=== PATIENT | male | born 1970 | race Caucasian/White ===

== ENCOUNTER 2017-02-13 18:52 | Emergency (ER) | payer BC ==
[2017-02-13 19:13] VITALS: BP 143/89
[2017-02-13] MEDS ORDERED: Lidocaine 1% MPF* 2 ML VIAL INJ ONE (19:40)
--- NOTE | 2017-02-13 19:40 | UC ---
Laceration HPI - HPI Summary HPI Summary: SUSTAINED A LACERATION TO RADIAL SIDE OF LEFT WRIST ABOUT AN HOUR [employer]. WAS USING A UTILITY KNIFE TO FIX THE HANDLE OF HIS HAMMER AND SLIPPED. UTD TETANUS 2013. - History Of Current Complaint Chief Complaint: UCLaceration Stated Complaint: WRIST LACERATION Time Seen by Provider: 02/13/17 19:19 Hx Obtained From: Patient Laceration Location: Wrist - LEFT Mechanism Of Injury: Sharp Trauma Onset/Duration: Sudden Onset, Lasting Hours, Still Present Severity: Mild Pain Intensity: 0 Pain Scale Used: 0-10 Numeric Aggravating Factors: Movement Related History: Dominant Hand Right - Allergies/Home Medications Allergies/Adverse Reactions: Allergies Allergy/AdvReac Type Severity Reaction Status Date / Time No Known Allergies Allergy Verified 02/13/17 19:13 Home Medications: Home Medications Aspirin TAB* [Aspirin 325 MG TAB*] 325 mg PO DAILY 02/13/17 [History Confirmed 02/13/17] PMH/Surg Hx/FS Hx/Imm Hx Endocrine History Of: Denies: Diabetes, Thyroid Disease Cardiovascular History Of: Reports: Cardiac Disorders - Afib Denies: Hypertension Respiratory History Of: Reports: Asthma Denies: COPD GI/ History Of: Denies: Ulcer - Surgical History Surgical History: Yes Surgery Procedure, Year, and Place: appe - Family History Known Family History: Positive: Hypertension - Social History Alcohol Use: Rare Substance Use Type: None Smoking Status (MU): Never Smoked Tobacco - Immunization History Most Recent Influenza Vaccination: never received Most Recent Tetanus Shot: 2013 Most Recent Pneumonia Vaccination: never recieved Review of Systems Constitutional: Negative Skin: Other - LACERATION LEFT WRIST Respiratory: Negative Cardiovascular: Negative Gastrointestinal: Negative All Other Systems Reviewed And Are Negative: Yes Physical Exam Triage Information Reviewed: Yes Appearance: Well-Appearing, No Pain Distress, Well-Nourished Vital Signs: Initial Vital Signs Temp 97.6 F 02/13/17 19:10 Pulse 76 02/13/17 19:10 Resp 16 02/13/17 19:10 BP 143/89 02/13/17 19:10 Pulse Ox 97 02/13/17 19:10 Vital Signs Reviewed: Yes Eyes: Positive: Conjunctiva Clear ENT: Positive: Hearing grossly normal Neck: Positive: Supple Respiratory: Positive: No respiratory distress, No accessory muscle use Cardiovascular: Positive: Pulses Normal Abdomen Description: Positive: Soft Musculoskeletal: Positive: No Edema Neurological: Positive: Alert Psychological: Positive: Age Appropriate Behavior Skin: Positive: Other - 13MM LINEAR LACERATION RADIAL SIDE OF LEFT WRIST GAPING SLIGHTLY Laceration Repair - Laceration Repair 1 Description: Linear Laceration Size After Repair: Length (cm) - 1.3 CM, Width (mm) - 0MM, Depth (mm ) - 2MM Modified For Repair: No Type Injection: Local Anesthesia Used: 1.0% Lido Irrigation With Pressure Irrigation Device: Yes Closure Material: Sutures - 3 SIMPLE INTERRUPTED Closure Method: Single Layer Suture Of: Skin Suture Type: Other - 4-0 SURGIPRO Laceration Course/Dx - Differential Dx - Laceration/Wound Provider Diagnoses: LACERATION REPAIR LEFT WRIST Discharge - Discharge Plan Condition: Stable Disposition: HOME Patient Education Materials: Laceration (ED) Referrals: Oscar Rogers DO [Primary Care Provider] - If Needed Additional Instructions: APPLY THIN LAYER ANTIBIOTIC OINTMENT UNDER BANDAGE FOR FIRST 3-4 DAYS ONLY. CHANGE BANDAGE DAILY AND NEEDED IF IT BECOMES SOILED OR WET. SEEK FOLLOW-UP IF YOU DEVELOP SPREADING REDNESS OF THE SKIN, PURULENT DRAINAGE, FEVER, INCREASED PAIN OR ANY OTHER CONCERNING SYMPTOMS. RETURN FOR SUTURE REMOVAL IN 10 DAYS
== END 2017-02-13 20:32 | disposition home or self-care (01) ==
LOC: UCEAST 18:52
DX: S61.512A Laceration without foreign body of left wrist, initial encounter (principal); W45.8XXA Other foreign body or object entering through skin, initial encounter; Y93.9 Activity, unspecified; Y92.9 Unspecified place or not applicable; I48.91 Unspecified atrial fibrillation; J45.909 Unspecified asthma, uncomplicated
CPT/HCPCS: 12001; 12011; 12031; 99211; G0463

== ENCOUNTER 2018-02-22 12:15 | Emergency (ER) | payer BC, OTHER ==
[2018-02-22 13:51] VITALS: BP 177/90
--- NOTE | 2018-02-22 16:18 | UC ---
Dalton Ascencio Julia, scribed for Stalin Douglas MD on 02/22/18 at 1456 . General HPI - HPI Summary HPI Summary: This patient is a 47 year old M presenting to [facility] accompanied by his with a chief complaint of left foot pain and swelling for the past four days. Patient denies fever or chills. The patient rates the pain 5/10 in severity. Symptoms similar to previous gout symptoms, last occurring five years ago. Medications include ASA for A-fib. - History of Current Complaint Chief Complaint: UCLowerExtremity Stated Complaint: FOOT PAIN Time Seen by Provider: 02/22/18 14:52 Hx Obtained From: Patient Onset/Duration: Lasting Days, Still Present Timing: Constant Pain Intensity: 5 Pain Location at: left foot Character: swelling Associated Signs & Symptoms: Negative: Fever - Allergy/Home Medications Allergies/Adverse Reactions: Allergies Allergy/AdvReac Type Severity Reaction Status Date / Time No Known Allergies Allergy Verified 02/22/18 13:51 PMH/Surg Hx/FS Hx/Imm Hx Previously Healthy: Yes - gout Cardiovascular History: Atrial Fibrillation - Surgical History Surgical History: Yes Surgery Procedure, Year, and Place: appendectomy - Family History Known Family History: Positive: Hypertension - Social History Lives: With Family Alcohol Use: Occasionally Substance Use Type: None Smoking Status (MU): Never Smoked Tobacco - Immunization History Most Recent Influenza Vaccination: never received Most Recent Tetanus Shot: 2013 Most Recent Pneumonia Vaccination: never recieved Review of Systems Constitutional: Negative Musculoskeletal: Arthralgia, Edema All Other Systems Reviewed And Are Negative: Yes Physical Exam - Summary Physical Exam Summary: General: well-appearing, no pain distress Skin: warm, color reflects adequate perfusion, dry Head: normal Eyes: EOMI, SCOT ENT: normal Neck: supple, nontender Respiratory: CTA, breath sounds present Cardiovascular: RRR Abdomen: soft, nontender Bowel: present Musculoskeletal: strength/ROM intact, left MTP joint swelling and erythema, no streaking, good pulses, no break in skin, tophi present Neurological: sensory/motor intact, A&O x3 Psychological: affect/mood appropriate Triage Information Reviewed: Yes Vital Signs: Initial Vital Signs Temp 98.9 F 02/22/18 13:47 Pulse 66 02/22/18 13:47 Resp 16 02/22/18 13:47 BP 177/90 02/22/18 13:47 Pulse Ox 96 02/22/18 13:47 Vital Signs Reviewed: Yes Course/Dx - Course Course Of Treatment: Patient was advised to follow up with his primary care physician regarding his high blood pressure. - Differential Dx - Multi-Symptom Provider Diagnoses: GOUT LEFT MTP Discharge - Sign-Out/Discharge Documenting (check all that apply): Discharge/Admit/Transfer - Discharge Plan Condition: Stable Disposition: HOME Prescriptions: Indomethacin CAP* [Indocin CAP*] 50 mg PO TID #21 cap Patient Education Materials: Low Purine Diet (ED), Gout (ED) Referrals: Oscar Rogers DO [Primary Care Provider] - Additional Instructions: FOLLOW UP WITH YOUR DOCTOR. GET RECHECKED FOR ANY WORSENING OF YOUR CONDITION OR QUESTIONS OR CONCERNS. - Billing Disposition and Condition Condition: STABLE Disposition: HOME The documentation as recorded by the Dalton espinal Julia accurately reflects the service I personally performed and the decisions made by me, Stalin Douglas MD.
== END 2018-02-22 15:10 | disposition home or self-care (01) ==
LOC: UCEAST 12:15
DX: M10.072 Idiopathic gout, left ankle and foot (principal); I48.91 Unspecified atrial fibrillation; Z79.82 Long term (current) use of aspirin
CPT/HCPCS: 99212; G0463

== ENCOUNTER 2023-07-24 14:16 | Observation (INO) ==
[2023-07-24] MEDS ORDERED: NS 0.9% 1000 ml BAG 1,000 ML IV ONE (14:32)
[2023-07-24 14:50] LABS: ABS Basophils 0.1 10^3/uL (0.0-0.1); ABS Eosinophils 0.2 10^3/uL (0.0-0.5); ABS Lymphocytes 1.9 10^3/uL (1.0-4.8); ABS Monocytes 0.8 10^3/uL (0.0-1.1); ABS Neutrophils 6.2 10^3/uL (1.5-7.6); Eosinophil % 2.4 %; Hematocrit 39.8 % (38-53); Hemoglobin 13.8 g/dL (13.2-16.3); Lymphocyte % 20.4 %; Mean Corpuscular Hemoglobin 28.9 pg (27-33); Mean Corpuscular Hgb Conc 34.7 g/dL (31-36); Mean Corpuscular Volume 83.3 fL (80-97); Mean Platelet Volume 6.4 fL (7.5-11.2); Platelet Count 272 10^3/uL (150-450); Red Blood Count 4.78 10^6/uL (4.06-5.63); Red Cell Distribution Width 13.3 % (12-17); White Blood Count 9.1 10^3/uL (3.6-10.2)
[2023-07-24 15:22] LABS: Albumin 4.1 g/dL (3.2-5.2); Albumin/Globulin Ratio 1.3 (1-3); Calcium 8.6 mg/dL (8.6-10.3); Creatinine, Serum 1.1 mg/dL (0.67-1.17); Globulin 3.1 g/dL (2-4); Magnesium 2.1 mg/dL (1.9-2.7); Phosphorus 1.9 mg/dL (2.5-5.0); Potassium 3.9 mmol/L (3.5-5.0); Total Bilirubin 0.5 mg/dL (0.2-1.0); Total Protein 7.2 g/dL (6.4-8.9); eGFR CKD-EPI 79.8 (>60)
[2023-07-24 15:27] LABS: INR 1.14 (0.83-1.13)
[2023-07-24 16:11] LABS: High Sensitivity Troponin 1 Hr 103 pg/mL (<20)
[2023-07-24] MEDS ORDERED: Potassium Acid Phos 500 mg TAB PO ONE (18:31)
[2023-07-24] MEDS: Heparin 5000 UNITS/ML 1 mL VIAL IV SCH (19:03)
[2023-07-24] MEDS: Heparin DRIP 25,000 UNITS BAG 25,000 UNITS/500 ML BAG IV SCH (19:04)
[2023-07-24 22:12] LABS: HDL Cholesterol 33.8 mg/dL
[2023-07-25] MEDS: Heparin 5000 UNITS/ML 1 mL VIAL IV SCH ×2 (02:06→09:55)
[2023-07-25 08:16] LABS: ABS Basophils 0.1 10^3/uL (0.0-0.1); ABS Eosinophils 0.5 10^3/uL (0.0-0.5); ABS Lymphocytes 1.8 10^3/uL (1.0-4.8); ABS Monocytes 0.5 10^3/uL (0.0-1.1); ABS Neutrophils 4.4 10^3/uL (1.5-7.6); ABS Nucleated RBC 0.01 10^3/ul; Eosinophil % 6.6 %; Hematocrit 38.4 % (38-53); Hemoglobin 13.1 g/dL (13.2-16.3); Lymphocyte % 25.1 %; Mean Corpuscular Hemoglobin 28.7 pg (27-33); Mean Corpuscular Hgb Conc 34.1 g/dL (31-36); Mean Corpuscular Volume 84.3 fL (80-97); Mean Platelet Volume 6.4 fL (7.5-11.2); Nucleated Red Blood Cells % 0.2 %/100WBC (0.0-0.8); Platelet Count 239 10^3/uL (150-450); Red Blood Count 4.56 10^6/uL (4.06-5.63); Red Cell Distribution Width 13.4 % (12-17); White Blood Count 7.3 10^3/uL (3.6-10.2)
[2023-07-25 08:48] LABS: Calcium 8.3 mg/dL (8.6-10.3); Creatinine, Serum 0.97 mg/dL (0.67-1.17); Potassium 3.9 mmol/L (3.5-5.0); eGFR CKD-EPI 92.8 (>60)
[2023-07-25] MEDS ORDERED: NON FORMULARY MED (Diltiazem Hcl 300 mg capsule,extended release 24hr) PO SCH (09:00)
[2023-07-25] MEDS ORDERED: Aspirin EC 325 mg TAB.EC PO SCH (09:08)
[2023-07-25] MEDS ORDERED: Potassium Chlor 20 meq TAB.ER PO ONE (11:01)
[2023-07-25] MEDS ORDERED: Regadenoson 0.4 MG/5 ML SYRINGE ONE (11:47)
[2023-07-25] MEDS ORDERED: Aminophylline 25 MG/ML VIAL ONE (11:48)
[2023-07-25 11:54] LABS: Phosphorus 3.2 mg/dL (2.5-5.0)
[2023-07-25 13:55] VITALS: BP 117/68
[2023-07-25] MEDS: Heparin DRIP 25,000 UNITS BAG 25,000 UNITS/500 ML BAG IV SCH (14:01)
[2023-07-26] MEDS ORDERED: Aspirin EC 325 mg TAB.EC PO SCH (09:00)
== END 2023-07-25 17:51 | disposition home or self-care (01) ==
LOC: EDHOLD 14:16 → ED 14:16 → SUATTDRO 16:57 → MEDTELE 18:07
PROVIDERS: ADMIT Internal Medicine; ATTEND Hospitalist

== ENCOUNTER 2024-03-10 12:10 | Observation (INO) ==
[2024-03-10] MEDS: Lactated Ringers 1000 ml BAG 1,000 ML IV ONE ×2 (12:33→13:30)
[2024-03-10 12:38] LABS: ABS Basophils 0.1 10^3/uL (0.0-0.1); ABS Eosinophils 0.1 10^3/uL (0.0-0.5); ABS Lymphocytes 1.4 10^3/uL (1.0-4.8); ABS Monocytes 0.6 10^3/uL (0.0-1.1); ABS Neutrophils 7.1 10^3/uL (1.5-7.6); Eosinophil % 1.5 %; Hematocrit 38.1 % (38-53); Hemoglobin 12.8 g/dL (13.2-16.3); Lymphocyte % 14.8 %; Mean Corpuscular Hemoglobin 28.2 pg (27-33); Mean Corpuscular Hgb Conc 33.5 g/dL (31-36); Mean Corpuscular Volume 84.1 fL (80-97); Mean Platelet Volume 6.7 fL (7.5-11.2); Platelet Count 349 10^3/uL (150-450); Red Blood Count 4.53 10^6/uL (4.06-5.63); Red Cell Distribution Width 13.7 % (12-17); White Blood Count 9.3 10^3/uL (3.6-10.2)
[2024-03-10] MEDS: NS 0.9% 1000 ml BAG 1,000 ML IV ONE (12:45)
[2024-03-10 12:48] LABS: INR 1.28 (0.83-1.13)
[2024-03-10 14:16] LABS: Albumin 4.3 g/dL (3.2-5.2); Albumin/Globulin Ratio 1.7 (1-3); Calcium 8.7 mg/dL (8.6-10.3); Creatinine, Serum 1.74 mg/dL (0.67-1.17); Globulin 2.6 g/dL (2-4); Potassium 4.2 mmol/L (3.5-5.0); Total Bilirubin 0.7 mg/dL (0.2-1.0); Total Protein 6.9 g/dL (6.4-8.9); eGFR CKD-EPI 45.7 (>60)
[2024-03-10 14:24] LABS: High Sensitivity Troponin 1 Hr 9 pg/mL (<20)
[2024-03-10 15:13] LABS: TSH Ultra Thyroid Stim Horm 2.58 mcIU/mL (0.34-5.60)
[2024-03-10] MEDS: Iodixanol (CONTRAST) 320 MG/ML 100 ML SDV IV ONE (17:01)
[2024-03-10] MEDS ORDERED: Ondansetron 4 mg VIAL 2 MG/ML 2 ml VIAL IV PRN (19:09)
[2024-03-10] MEDS: NS 0.9% 1000 ml BAG 1,000 ML IV SCH (19:24)
[2024-03-10 19:30] LABS: HDL Cholesterol 34.2 mg/dL
[2024-03-11] MEDS ORDERED: Regadenoson 0.4 MG/5 ML SYRINGE ONE (08:00)
[2024-03-11] MEDS ORDERED: Sulfur Hexaflouride MICROSPHR 25 MG VIAL ONE (08:44)
[2024-03-11] MEDS ORDERED: NON FORMULARY MED (Diltiazem Hcl 300 mg capsule,extended release 24hr) PO SCH (09:00)
[2024-03-11 09:05] LABS: ABS Basophils 0.1 10^3/uL (0.0-0.1); ABS Eosinophils 0.3 10^3/uL (0.0-0.5); ABS Lymphocytes 1.2 10^3/uL (1.0-4.8); ABS Monocytes 0.4 10^3/uL (0.0-1.1); ABS Neutrophils 3.9 10^3/uL (1.5-7.6); Hematocrit 34.2 % (38-53); Hemoglobin 11.7 g/dL (13.2-16.3); Lymphocyte % 21.2 %; Mean Corpuscular Hemoglobin 28.9 pg (27-33); Mean Corpuscular Hgb Conc 34.2 g/dL (31-36); Mean Corpuscular Volume 84.7 fL (80-97); Mean Platelet Volume 7.2 fL (7.5-11.2); Platelet Count 244 10^3/uL (150-450); Red Blood Count 4.04 10^6/uL (4.06-5.63); Red Cell Distribution Width 13.7 % (12-17); White Blood Count 5.8 10^3/uL (3.6-10.2)
[2024-03-11 10:49] LABS: Anion Gap 6 mmol/L (2-16); Blood Urea Nitrogen 22 mg/dL (6-24); CO2 Carbon Dioxide 26 mmol/L (22-32); Chloride 104 mmol/L (101-111); Creatinine, Serum 1.02 mg/dL (0.67-1.17); Glucose 97 mg/dL (70-100); Sodium 136 mmol/L (135-145); eGFR CKD-EPI 86.8 (>60)
[2024-03-11] MEDS: Aspirin EC 325 mg TAB.EC PO SCH (11:04)
[2024-03-11 12:00] LABS: Magnesium 1.8 mg/dL (1.9-2.7); Potassium Redraw 3.7 mmol/L (3.5-5.0)
[2024-03-11 15:05] VITALS: BP 135/85
[2024-03-11] MEDS: Sulfur Hexaflouride MICROSPHR 25 MG VIAL IV ONE (15:15)
== END 2024-03-11 15:41 | disposition home or self-care (01) ==
LOC: ED 12:10 → EDHOLD 12:10 → SUATTDRO 18:17 → MEDTELE 19:35
PROVIDERS: ADMIT Internal Medicine; ATTEND Internal Medicine